=== PATIENT | male | born 1940 | race Caucasian/White ===

== ENCOUNTER → 2016-03-24 | Outpatient (CLI) | payer MEDICARE, BC ==
[~2016-03-24] MED LIST: ASPIRIN 81M81 MG/TA2 PO; CALCIUM CITRAT200 MG PO; CELEBREX 200MG200 MG; CENTRUM SILVER1 TA1 PO; CORGARD20 MG PO; CORGARD40 MG PO; CYMBALTA 60MG60 MG PO; CYMBALTA30 MG PO; EVOXAC30 MG PO; EXCEDRIN1 TAB PO; FE-TABS325 MG PO; FLEXERIL 1010 MG/TAB; FLORINEF ACETA0.1 MG PO; FOLIC ACID 40400 MCG PO; GABAPENTIN600 MG PO; LEVOXYL0.088 MG; LODOSYN 25MG25 MG; MOBIC15 MG PO; MUCINEX 60600 MG/TA1 PO; MUCINEX DM 30 M1 TER PO; MUCUS RELIEF400 M1 PO; NEURONTIN300 MG/CAP PO; NEXIUM 40MG40 MG PO; PRILOSEC 20MG20 MG; SINEMET 25/101 UDTAB PO; SKELAXIN800 MG PO; TYLENOL PM PO; ULTRAM 50MG TAB50 MG PO; VITAMIN C PO; VITAMIN C500 MG PO; VITAMIN D; WELLBUTRIN 75MG75 MG PO
== END ==
LOC: COL.RAD 09:22
PROVIDERS: Family Medicine
DX: M47.892 Other spondylosis, cervical region (principal); M54.2 Cervicalgia; R51 Headache; Z98.1 Arthrodesis status

== ENCOUNTER → 2016-04-05 | Outpatient (CLI) | payer MEDICARE, BC | LOC: MHCPAIN 09:44 | DX: G89.29 Other chronic pain (principal); M50.90 Cervical disc disorder, unspecified, unspecified cervical region; R51 Headache | CPT/HCPCS: G0463 ==

== ENCOUNTER → 2016-04-14 | Outpatient (CLI) | payer MEDICARE, BC | LOC: MHCPAIN 09:15 | DX: M50.30 Other cervical disc degeneration, unspecified cervical region (principal) ==

== ENCOUNTER → 2016-04-20 | Outpatient (CLI) | payer MEDICARE, BC | LOC: MHCPAIN 08:42 | DX: G89.29 Other chronic pain (principal); M50.90 Cervical disc disorder, unspecified, unspecified cervical region; R51 Headache | CPT/HCPCS: G0463 ==

== ENCOUNTER → 2016-04-21 | Outpatient (CLI) | payer MEDICARE, BC | LOC: MHCPAIN 12:10 | DX: M50.322 Other cervical disc degeneration at C5-C6 level (principal) ==

== ENCOUNTER → 2016-04-29 | Outpatient (CLI) | payer MEDICARE, BC | LOC: MHCPAIN 12:26 | DX: G89.29 Other chronic pain (principal); M50.90 Cervical disc disorder, unspecified, unspecified cervical region; R51 Headache | CPT/HCPCS: G0463 ==

== ENCOUNTER → 2016-05-26 | Outpatient (CLI) | payer MEDICARE, BC | LOC: MHCPAIN 13:08 | DX: M50.30 Other cervical disc degeneration, unspecified cervical region (principal) | CPT/HCPCS: J1100 ==

== ENCOUNTER → 2016-06-09 | Outpatient (CLI) | payer MEDICARE, BC | LOC: MHCPAIN 08:43 | DX: M47.812 Spondylosis without myelopathy or radiculopathy, cervical region (principal) | CPT/HCPCS: J1100 ==

== ENCOUNTER → 2016-07-11 | Outpatient (CLI) | payer MEDICARE, BC | LOC: MHCPAIN 09:20 | DX: G89.29 Other chronic pain (principal); M50.90 Cervical disc disorder, unspecified, unspecified cervical region; M54.12 Radiculopathy, cervical region; M54.81 Occipital neuralgia; R51 Headache; M25.541 Pain in joints of right hand | CPT/HCPCS: G0463 ==

== ENCOUNTER → 2016-10-03 | Outpatient (CLI) | payer MEDICARE, BC | LOC: MHCPAIN 12:11 | DX: M50.90 Cervical disc disorder, unspecified, unspecified cervical region (principal); R51 Headache; M79.1 Myalgia; Z79.82 Long term (current) use of aspirin | CPT/HCPCS: G0463 ==

== ENCOUNTER → 2016-10-05 | Outpatient (CLI) | payer MEDICARE, BC | LOC: MHCPAIN 08:14 | DX: M79.1 Myalgia (principal) | CPT/HCPCS: J1100 ==

== ENCOUNTER → 2017-01-03 | Outpatient (CLI) | payer MEDICARE, BC | LOC: MHCPAIN 09:50 | DX: G89.29 Other chronic pain (principal); M50.11 Cervical disc disorder with radiculopathy, high cervical region; R51 Headache | CPT/HCPCS: G0463 ==

== ENCOUNTER → 2017-01-12 | Outpatient (CLI) | payer MEDICARE, BC | LOC: MHCPAIN 14:20 | DX: Z53.8 Procedure and treatment not carried out for other reasons (principal) ==

== ENCOUNTER → 2017-01-26 | Outpatient (CLI) | payer MEDICARE, BC | LOC: MHCPAIN 12:37 | DX: M50.31 Other cervical disc degeneration, high cervical region (principal); Z98.1 Arthrodesis status ==

== ENCOUNTER → 2017-02-13 | Outpatient (CLI) | payer MEDICARE, BC | LOC: MHCPAIN 10:58 | DX: G89.29 Other chronic pain (principal); M50.90 Cervical disc disorder, unspecified, unspecified cervical region; R51 Headache | CPT/HCPCS: G0463 ==

== ENCOUNTER → 2017-02-16 | Outpatient (CLI) | payer MEDICARE, BC | LOC: MHCPAIN 11:51 | DX: M50.321 Other cervical disc degeneration at C4-C5 level (principal); M96.1 Postlaminectomy syndrome, not elsewhere classified; Z98.1 Arthrodesis status | CPT/HCPCS: J1100; J3010 ==

== ENCOUNTER → 2017-03-20 | Outpatient (CLI) | payer MEDICARE, BC | LOC: MHCPAIN 11:21 | DX: G89.29 Other chronic pain (principal); M50.90 Cervical disc disorder, unspecified, unspecified cervical region; M54.12 Radiculopathy, cervical region; R51 Headache | CPT/HCPCS: G0463 ==

== ENCOUNTER → 2017-04-13 | Outpatient (CLI) | payer MEDICARE, BC | LOC: MHCPAIN 10:43 | DX: M50.31 Other cervical disc degeneration, high cervical region (principal); M96.1 Postlaminectomy syndrome, not elsewhere classified | CPT/HCPCS: J1100; J2250; J3010 ==

== ENCOUNTER → 2017-05-24 | Outpatient (CLI) | payer MEDICARE, BC | LOC: MHCPAIN 15:20 | DX: G89.29 Other chronic pain (principal); M50.90 Cervical disc disorder, unspecified, unspecified cervical region; M54.12 Radiculopathy, cervical region; R51 Headache; M46.96 Unspecified inflammatory spondylopathy, lumbar region; M96.1 Postlaminectomy syndrome, not elsewhere classified | CPT/HCPCS: G0463 ==

== ENCOUNTER → 2017-06-08 | Outpatient (CLI) | payer MEDICARE, BC | LOC: MHCPAIN 14:15 | DX: M47.817 Spondylosis without myelopathy or radiculopathy, lumbosacral region (principal); M43.16 Spondylolisthesis, lumbar region | CPT/HCPCS: J1040; Q9967 ==

== ENCOUNTER → 2017-07-14 | Outpatient (CLI) | payer MEDICARE, BC | LOC: MHCPAIN 10:29 | DX: G89.29 Other chronic pain (principal); M47.817 Spondylosis without myelopathy or radiculopathy, lumbosacral region; M53.3 Sacrococcygeal disorders, not elsewhere classified; M96.1 Postlaminectomy syndrome, not elsewhere classified | CPT/HCPCS: G0463 ==

== ENCOUNTER 2017-08-21 19:30 | Emergency (ER) | payer MEDICARE, BC ==
[~2017-08-21] VITALS: Ht 175.3 cm; Wt 84.1 kg
[2017-08-21 19:33] VITALS: BP 183/88; TEMP 98.9
[2017-08-21] MEDS ORDERED: TOPROL XL 25MG25 MG PO (19:44)
[2017-08-21 21:08] VITALS: PULSE 64
== END 2017-08-21 21:08 | disposition home or self-care (01) ==
LOC: COL.ER 19:30
DX: K91.841 Postprocedural hemorrhage of a digestive system organ or structure following other procedure (principal)

== ENCOUNTER → 2017-11-10 | Outpatient (CLI) | payer MEDICARE, BC ==
[~2017-11-10] MED LIST changes: +TOPROL XL 25MG25 MG PO
== END ==
LOC: MHCPAIN 10:23
DX: G89.29 Other chronic pain (principal); M47.817 Spondylosis without myelopathy or radiculopathy, lumbosacral region; M54.16 Radiculopathy, lumbar region; M53.3 Sacrococcygeal disorders, not elsewhere classified
CPT/HCPCS: G0463

== ENCOUNTER → 2018-05-22 | Outpatient (CLI) | payer MEDICARE, BC | LOC: MHCPAIN 10:54 | DX: G89.29 Other chronic pain (principal); M47.817 Spondylosis without myelopathy or radiculopathy, lumbosacral region; M53.3 Sacrococcygeal disorders, not elsewhere classified | CPT/HCPCS: G0463 ==

== ENCOUNTER → 2018-05-24 | Outpatient (CLI) | payer MEDICARE, BC | LOC: MHCPAIN 10:13 | DX: M47.817 Spondylosis without myelopathy or radiculopathy, lumbosacral region (principal); M54.16 Radiculopathy, lumbar region | CPT/HCPCS: J1040; Q9967 ==

== ENCOUNTER → 2018-06-25 | Outpatient (CLI) | payer MEDICARE, BC | LOC: MHCPAIN 11:05 | DX: G89.29 Other chronic pain (principal); M47.817 Spondylosis without myelopathy or radiculopathy, lumbosacral region; M54.16 Radiculopathy, lumbar region; M53.3 Sacrococcygeal disorders, not elsewhere classified; M96.1 Postlaminectomy syndrome, not elsewhere classified | CPT/HCPCS: G0463 ==

== ENCOUNTER → 2018-08-07 | Outpatient (CLI) | payer MEDICARE, BC | LOC: MHCPAIN 13:51 | DX: G89.29 Other chronic pain (principal); R51 Headache; M47.812 Spondylosis without myelopathy or radiculopathy, cervical region | CPT/HCPCS: G0463 ==

== ENCOUNTER → 2018-08-16 | Outpatient (CLI) | payer MEDICARE, BC | LOC: MHCPAIN 10:53 | DX: M47.812 Spondylosis without myelopathy or radiculopathy, cervical region (principal); M54.12 Radiculopathy, cervical region ==

== ENCOUNTER → 2018-09-06 | Outpatient (CLI) | payer MEDICARE, BC | LOC: MHCPAIN 10:34 | DX: M47.812 Spondylosis without myelopathy or radiculopathy, cervical region (principal); M54.12 Radiculopathy, cervical region; G89.29 Other chronic pain | CPT/HCPCS: G0463; J1100; J3010 ==

== ENCOUNTER → 2018-10-23 | Outpatient (CLI) | payer MEDICARE, BC | LOC: MHCPAIN 11:00 | DX: G89.29 Other chronic pain (principal); R51 Headache; M47.812 Spondylosis without myelopathy or radiculopathy, cervical region | CPT/HCPCS: G0463 ==

== ENCOUNTER → 2018-11-01 | Outpatient (CLI) | payer MEDICARE, BC | LOC: MHCPAIN 10:39 | DX: M54.12 Radiculopathy, cervical region (principal); M47.812 Spondylosis without myelopathy or radiculopathy, cervical region; R51 Headache ==

== ENCOUNTER → 2018-11-14 | Outpatient (CLI) | payer MEDICARE, BC | LOC: MHCPAIN 08:51 | DX: G89.29 Other chronic pain (principal); M54.81 Occipital neuralgia; R51 Headache; M47.812 Spondylosis without myelopathy or radiculopathy, cervical region | CPT/HCPCS: G0463 ==

== ENCOUNTER → 2018-11-19 | Outpatient (CLI) | payer MEDICARE, BC | LOC: MHCPAIN 11:43 | DX: M47.812 Spondylosis without myelopathy or radiculopathy, cervical region (principal); M54.12 Radiculopathy, cervical region | CPT/HCPCS: J1100; J3010 ==

== ENCOUNTER → 2019-01-22 | Outpatient (CLI) | payer MEDICARE, BC | LOC: MHCPAIN 10:45 | DX: R51 Headache (principal); M47.812 Spondylosis without myelopathy or radiculopathy, cervical region | CPT/HCPCS: G0463 ==

== ENCOUNTER → 2019-02-11 | Outpatient (CLI) | payer MEDICARE, BC | LOC: COL.RAD 10:49 | DX: Z01.812 Encounter for preprocedural laboratory examination (principal); M48.02 Spinal stenosis, cervical region; Z98.1 Arthrodesis status | CPT/HCPCS: A9585 ==

== ENCOUNTER → 2019-04-16 | Outpatient (CLI) | payer MEDICARE, BC | LOC: MHCPAIN 15:31 | DX: R51 Headache (principal); M54.81 Occipital neuralgia; G20 Parkinson's disease | CPT/HCPCS: G0463; J1040 ==

== ENCOUNTER → 2019-07-16 | Outpatient (CLI) | payer MEDICARE, BC | LOC: MHCPAIN 12:36 | DX: M47.812 Spondylosis without myelopathy or radiculopathy, cervical region (principal); M54.2 Cervicalgia; R51 Headache; M54.81 Occipital neuralgia; G89.29 Other chronic pain | CPT/HCPCS: G0463 ==

== ENCOUNTER → 2020-05-06 | Outpatient (CLI) | payer MEDICARE, BC | LOC: MHCPAIN 13:21 | DX: M47.817 Spondylosis without myelopathy or radiculopathy, lumbosacral region (principal); M53.3 Sacrococcygeal disorders, not elsewhere classified; M96.1 Postlaminectomy syndrome, not elsewhere classified; G89.29 Other chronic pain | CPT/HCPCS: G0463 ==

== ENCOUNTER → 2020-05-14 | Outpatient (CLI) | payer MEDICARE, BC | LOC: MHCPAIN 09:32 | DX: M47.817 Spondylosis without myelopathy or radiculopathy, lumbosacral region (principal); M53.3 Sacrococcygeal disorders, not elsewhere classified; M54.5 Low back pain | CPT/HCPCS: J1040; Q9967 ==

== ENCOUNTER → 2020-05-26 | Outpatient (CLI) | payer MEDICARE, BC | LOC: MHCPAIN 10:43 | DX: M47.817 Spondylosis without myelopathy or radiculopathy, lumbosacral region (principal); M54.5 Low back pain; G89.29 Other chronic pain | CPT/HCPCS: G0463 ==

== ENCOUNTER → 2021-09-14 | Outpatient (CLI) | payer MEDICARE, BC | LOC: COL.RAD 13:08 | DX: M47.26 Other spondylosis with radiculopathy, lumbar region (principal); M47.27 Other spondylosis with radiculopathy, lumbosacral region; M48.061 Spinal stenosis, lumbar region without neurogenic claudication ==

== ENCOUNTER → 2021-11-30 | Outpatient (CLI) | payer MEDICARE, BC | LOC: MHCPAIN 12:52 | DX: M47.817 Spondylosis without myelopathy or radiculopathy, lumbosacral region (principal); M54.16 Radiculopathy, lumbar region; M53.3 Sacrococcygeal disorders, not elsewhere classified | CPT/HCPCS: G0463 ==

== ENCOUNTER → 2023-07-26 | Outpatient (CLI) | payer MEDICARE, BC | LOC: MHCPAIN 09:29 | DX: M47.896 Other spondylosis, lumbar region (principal); M54.50 Low back pain, unspecified; M96.1 Postlaminectomy syndrome, not elsewhere classified; G20.C Parkinsonism, unspecified | CPT/HCPCS: G0463 ==

== ENCOUNTER → 2023-09-21 | Outpatient (CLI) | payer MEDICARE, BC | LOC: MHCPAIN 09:14 | DX: M47.817 Spondylosis without myelopathy or radiculopathy, lumbosacral region (principal); M54.50 Low back pain, unspecified | CPT/HCPCS: J0665 ==

== ENCOUNTER → 2023-11-09 | Outpatient (CLI) | payer MEDICARE, BC ==
[~2023-11-09] MED LIST changes: +Atropine 1 MG/10 ML SYRINGE IV ONE; +Glycopyrrolate 0.2 MG/ML 1 ML VIAL ONE; +Lidocaine PF 2% (20 MG/ML) 5 ML VIAL ONE; +Midazolam 2 MG/2 ML VIAL ONE; +ePHEDrine 50 MG/10 ML VIAL IV ONE; +fentaNYL 50 MCG/ML 2 ML VIAL ONE
== END ==
LOC: MHCPAIN 09:47
DX: M47.817 Spondylosis without myelopathy or radiculopathy, lumbosacral region (principal); M54.50 Low back pain, unspecified; M48.061 Spinal stenosis, lumbar region without neurogenic claudication; M54.16 Radiculopathy, lumbar region
CPT/HCPCS: J0461; J0665; J2250; J3010

== ENCOUNTER → 2024-01-10 | Outpatient (CLI) | payer MEDICARE, BC ==
[~2024-01-10] MED LIST changes: -Atropine 1 MG/10 ML SYRINGE IV ONE; -Glycopyrrolate 0.2 MG/ML 1 ML VIAL ONE; -Lidocaine PF 2% (20 MG/ML) 5 ML VIAL ONE; -Midazolam 2 MG/2 ML VIAL ONE; -ePHEDrine 50 MG/10 ML VIAL IV ONE; -fentaNYL 50 MCG/ML 2 ML VIAL ONE
== END ==
LOC: MHCPAIN 10:57
DX: M48.061 Spinal stenosis, lumbar region without neurogenic claudication (principal); M43.16 Spondylolisthesis, lumbar region; M47.816 Spondylosis without myelopathy or radiculopathy, lumbar region; G20.A1 Parkinson's disease without dyskinesia, without mention of fluctuations
CPT/HCPCS: G0463